=== PATIENT | male | born 1950 | race African-American/Black ===

== ENCOUNTER 2018-09-02 11:06 | Inpatient (IN) | payer MEDICARE, MEDICAID ==
[~2018-09-02] VITALS: Ht 185.4 cm; Wt 83.9 kg
[~2018-09-02 11:06] MED LIST: ACETYLCHOLINE CHLORIDE INTRAOCULAR SOLUTION 1:100 ELECTROLYTE DILUENT IO ONE; BALANCED SALT IRRIG SOLN 15ML ONE; BUPIVACAINE HCL/PF 0.75% (7.5MG/ML) 10ML ONE; LIDOCAINE HCL 2%/EPINEPHRINE 1:100,000 20 ML VIAL INFIL ONE; LIDOCAINE HCL/PF 2% 20 MG/ML 10ML VIAL ONE; TETRACAINE 0.5% OPHTH DROPS 4ML ONE
[2018-09-02 14:01] LABS: BASOPHILS % 0.8 % (0.0-2.0); EOSINOPHILS % 4.2 % (0.0-5.0); HEMATOCRIT. 45.6 % (42.0-52.0); HEMOGLOBIN. 15.6 g/dL (14.0-18.0); LYMPHOCYTES % 31.4 % (20.0-50.0); MEAN CORPUSCULAR HEMOGLOBIN 31.2 pg (28.0-32.0); MEAN CORPUSCULAR VOLUME 91.3 fL (80.0-94.0); MEAN PLATELET VOLUME 8.1 fl (7.4-10.4); MONOCYTES % 12.4 % (2.0-8.0); NEUTROPHILS % 51.2 % (40.0-76.0); PLATELET 199 x1000/uL (130-400); RED CELL DISTRIBUTION WIDTH 14.6 % (11.6-14.6)
[2018-09-02 14:03] LABS: CHLORIDE 108 mEq/L (98-107)
[2018-09-02] MEDS ORDERED: HYDROMORPHONE HCL/PF 2MG/ML CPJ IV PRN (14:15)
[2018-09-02] MEDS ORDERED: LABETALOL HCL 20MG/4ML CARPUJECT IV PRN (14:15)
[2018-09-02] MEDS ORDERED: ONDANSETRON HCL 4MG/2ML INJ IV PRN (14:15)
[2018-09-02] MEDS ORDERED: MEPERIDINE HCL/PF 25MG/ML CPJ IV PRN (14:15)
[2018-09-02] MEDS ORDERED: PROPOFOL 200MG/20ML VIAL IV ONE (14:37)
[2018-09-02] MEDS ORDERED: FENTANYL CITRATE/PF 50MCG/ML 2ML VIAL ONE (14:37)
[2018-09-02] MEDS ORDERED: MIDAZOLAM HCL 2 MG/2 ML VIAL ONE (14:38)
[2018-09-02] MEDS ORDERED: DEXAMETHASONE 4MG/ML 1ML VIAL ONE (14:40)
[2018-09-02] MEDS ORDERED: ONDANSETRON HCL 4MG/2ML INJ ONE (14:40)
[2018-09-02] MEDS ORDERED: CEFAZOLIN SODIUM 1000MG/VIAL ONE (14:41)
[2018-09-02] MEDS ORDERED: SODIUM CHLORIDE 0.9% 10ML VIAL ONE (14:41)
[2018-09-02] MEDS ORDERED: LIDOCAINE HCL/PF 1% 10 MG/ML 5ML VIAL ONE (14:41)
[2018-09-02 16:00] VITALS: BP 137/74
[2018-09-02 20:00] VITALS: BP 133/82
[2018-09-02] MEDS ORDERED: HYDROMORPHONE HCL/PF 2MG/ML CPJ IM PRN (20:30)
[2018-09-02] MEDS ORDERED: IBUPROFEN 600MG TABLET PO PRN (21:00)
[2018-09-02] MEDS ORDERED: LATANOPROST 0.005% OPHTH DROPS 2.5ML BOTHEYE SCH (21:00)
[2018-09-02] MEDS ORDERED: TIMOLOL MALEATE 0.25% OPHTH DROPS 5ML EACHEYE SCH (21:00)
[2018-09-02] MEDS: LATANOPROST 0.005% OPHTH DROPS 2.5ML RIGHTEYE SCH (23:03)
[2018-09-03] VITALS (7 sets, daily range): BP systolic 121–146; BP diastolic 62–77
[2018-09-03] MEDS: TIMOLOL MALEATE 0.5% OPHTH DROPS 5ML RIGHTEYE SCH ×2 (09:00→17:29)
[2018-09-03] MEDS: LATANOPROST 0.005% OPHTH DROPS 2.5ML RIGHTEYE SCH (09:00)
[2018-09-03] MEDS: PREDNISOLONE ACETATE 1% OPHTH DROPS 1ML LEFTEYE SCH ×3 (09:21→17:29)
[2018-09-03] MEDS: CIPROFLOXACIN 0.3% OPHTH SOLN 2.5ML LEFTEYE SCH ×3 (09:21→17:29)
== END 2018-09-03 19:12 | disposition home or self-care (01) | DRG 117 ==
LOC: ER 11:06 → EDBEDREQ 13:45 → ENRESERV 17:37 → 6EST 18:10
PROVIDERS: ADMIT Ophthalmology; ATTEND Ophthalmology
PROC: 08133Z4 Bypass Left Anterior Chamber to Sclera, Percutaneous Approach (ICD-10-PCS; principal; 2018-09-02)
PROC: 08BD3ZZ Excision of Left Iris, Percutaneous Approach (ICD-10-PCS; 2018-09-02)
DX: H40.10X0 Unspecified open-angle glaucoma, stage unspecified (principal); H21.02 Hyphema, left eye; H25.13 Age-related nuclear cataract, bilateral; H57.03 Miosis; Z79.899 Other long term (current) drug therapy; Z88.2 Allergy status to sulfonamides; Z88.8 Allergy status to other drugs, medicaments and biological substances
CPT/HCPCS: 36415; 80048; 93005; 99285; J0690; J1100; J2250; J2405; J2704; J3010; J3490